=== PATIENT | male | born 1965 | race Caucasian/White ===

== ENCOUNTER 2017-04-28 10:48 | Day surgery (SDC) | payer OTHER ==
[~2017-04-28 10:48] MED LIST: BUPIVACAINE 0.5% 30 ML SDV ONE; DEXAMETHASONE 4 MG/ML VIAL ONE; LIDOCAINE 1% 300 MG/30 ML SDV ONE; ROPIVACAINE HCL 20 MG/10 ML INJ EP ONE; ceFAZolin 2 GM/SWFI 2 GM/20 ML SYR IVP ONE
[2017-04-28] MEDS ORDERED: BACITRACIN 50,000 UNITS/10 ML SYR IRR ONE (10:49)
[2017-04-28] MEDS ORDERED: ROPIVACAINE HCL 150 MG/30 ML INJ ONE (10:51)
[2017-04-28] MEDS ORDERED: LIDOCAINE 1% 2 ML INJ ID PRN (11:19)
[2017-04-28] MEDS ORDERED: LR 1,000 ML IV ONE (11:19)
--- NOTE | 2017-04-28 11:22 | PDANEPAE ---
ANE History of Present Illness 51 year old male presents for left bunionectomy. ANE Past Medical History - Cardiovascular History Hx Hypertension: No Hx Arrhythmias: No Hx Chest Pain: No Hx Coronary Artery / Peripheral Vascular Disease: No Hx CHF / Valvular Disease: No Hx Palpitations: No - Pulmonary History Hx COPD: No Hx Asthma/Reactive Airway Disease: No Hx Recent Upper Respiratory Infection: No Hx Oxygen in Use at Home: No Hx Sleep Apnea: Yes Sleep Apnea Screening Result - Last Documented: Positive Pulmonary History Comment: TYRA- uses "sleep number bed and decreases snoring". occ cigar smoking - Neurologic History Hx Cerebrovascular Accident: No Hx Seizures: No Hx Dementia: No - Endocrine History Hx Diabetes: No Hypothyroid: No Hyperthyroid: No Obesity: no - Renal History Hx Renal Disorders: No - Liver History Hx Hepatic Disorders: No - Neurological & Psychiatric Hx Hx Neurological and Psychiatric Disorders: Yes Neurological / Psychiatric History Comment: degenerative disc low back - Cancer History Hx Cancer: No - Congenital Disorder History Hx Congenital Disorders: No - GI History Hx Gastrointestinal Disorders: No - Other Health History Other Health History: L foot bunion - Chronic Pain History Chronic Pain: Yes - Surgical History Prior Surgeries: cervical fusion. biceps tendon surgery. bilat knee scopes '13 ,'14. repair labrum in shoulder'03 ANE Review of Systems Review of Systems: - Exercise capacity Exercise capacity: >=4 METS METS (RN): 5 METS ANE Patient History - Allergies Allergies/Adverse Reactions: gluten Allergy (Intermediate, Verified 05/22/12 14:45) INTOLERANCE wheat Allergy (Intermediate, Verified 05/22/12 14:45) POOR DIGESTION DAIRY Allergy (Intermediate, Uncoded 05/22/12 14:45) POOR DIGESTION - Home Medications Home medications: home medication list seen and reviewed Home Medications: NO HOME MEDS 06/12/09 [Last Taken Unknown] - NPO status NPO Status: no food or drink >8 hours - Anes Hx Anes Hx: no prior problems - Smoking Hx Smoking Status: Never smoked Marijuana use: No - Alcohol Use Alcohol Use: Rarely - Family Anes Hx Family Anes Hx: neg - N/A ANE Labs/Vital Signs - Vital Signs Vital Signs: reviewed preoperatively; see RN documention for details Height: 180.34 cm Weight: 81.647 kg ANE Physical Exam - Airway Neck exam: FROM Mallampati Score: Class 1 Mouth image: 1 - Veneers - Pulmonary Pulmonary: no respiratory distress - Cardiovascular Cardiovascular: regular rate and rhythym - ASA Status ASA Status: II ANE Anesthesia Plan Anesthesia Plan: MAC Total IV Anesthesia: Yes
[2017-04-28] MEDS ORDERED: MIDAZOLAM 2 MG/2 ML VIAL IVP ONE (11:23)
[2017-04-28] MEDS ORDERED: PROPOFOL/EMULSION 500 MG/50 ML BOTTLE IV ONE ×3 (11:58→13:30)
[2017-04-28] MEDS ORDERED: ceFAZolin 2 GM/SWFI 20 ML SYR IVP ONE (12:02)
--- NOTE | 2017-04-28 12:13 | PDHPUP ---
History & Physical Update H&P update statement: This history and physical update is based on an assessment of the patient which was completed after admission or registration (within 24 hours), but prior to the surgery/procedure.
[2017-04-28] MEDS ORDERED: OXYCODONE/APAP 5/325 TAB PO PRN ×2 (13:03→15:07)
[2017-04-28] MEDS ORDERED: LR 500 ML IV PRN (13:03)
[2017-04-28] MEDS ORDERED: fentaNYL 100 MCG/2 ML INJ IVP PRN (13:03)
[2017-04-28] MEDS ORDERED: NALOXONE HCL 0.4 MG/ML INJ IVP PRN (13:03)
[2017-04-28] MEDS ORDERED: ONDANSETRON 4 MG/2 ML VIAL IVP PRN ×2 (13:03→15:07)
[2017-04-28] MEDS ORDERED: ONDANSETRON 4 MG/2 ML VIAL ONE (14:11)
[2017-04-28] MEDS ORDERED: KETOROLAC 30 MG/1 ML SDV IVP ONE (15:06)
[2017-04-28] MEDS ORDERED: ONDANSETRON DISINTEGRATING 4 MG TAB PO PRN (15:07)
[2017-04-28] MEDS ORDERED: KETOROLAC 30 MG/1 ML SDV ONE (15:11)
--- NOTE | 2017-04-28 15:16 | POSTOPPROG ---
Post Op Note Date of Operation: 04/28/17 Surgeon: Rohini Leavitt [employer] Forester: Adilia Leavitt Pre-op Diagnosis: hallux vaglus, metatarsus primus varus, left Post-op Diagnosis: same Indication: pain Procedure: bunionectomy with double osteotomy, left Findings: some osteopenia Inf/Abcess present in the surg proc area at time of surgery?: No Complications: none
[2017-04-28 17:02] VITALS: BP 124/89; PULSE 54; RESP 15; TEMP 97.7; O2SAT 97
--- NOTE | 2017-04-28 19:44 | GOP ---
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 PROCEDURE PERFORMED: Bunionectomy with double osteotomy, osteotomy distal 1st metatarsal, and osteot lucia proximal phalanx, hallux, left foot. The patient presented to the hospital approximately 1-1/2 hours prior to foot surgery after having be en n.p.o. past midnight. The patient's preoperative history and physical, all lab studies and EKG we re reviewed and there were no contraindications to the proposed procedure. Patient was given cefazol in 2 g IV 1/2-hour prior to foot surgery. FINDINGS: DESCRIPTION OF PROCEDURE: The patient was taken to the OR and placed on the OR table in a supine pos ition where the appropriate anesthetic agents were administered. This was supplemented with a local block to the left foot utilizing a total of 10 cc of 1% lidocaine with 10 cc of 0.2% Naropin. The an esthetic block was given to the left forefoot to the base of the 1st metatarsal and to the posterior tibial nerve as it courses through the tarsal tunnel. The left lower extremity was then prepped and draped in the usual aseptic fashion covered with a sterile stockinette. A sterile pneumatic ankle to urniquet was applied and padded well underneath with Webril. Utilizing elevation overlying Esmarch b andage, the left foot was exsanguinated and the tourniquet was inflated to a pressure of 225 mmHg. T he foot was then lowered to the orthopedic table. Attention was then directed to the dorsal medial aspect of the 1st metatarsophalangeal joint, left fo ot, where an approximate 5 cm curvilinear incision was made initiated just distal to the 1st metatars ophalangeal joint, then extended proximally. The incision was made medial to the extensor hallucis l ongus tendon. The incision was deepened to the level of the capsular tissues taking care to preserve the neurovascular structures. Any bleeders were clamped and cauterized as needed. The subcutaneous tissues were reflected from the dorsal medial aspects of the capsular tissues to the 1st metatarsoph alangeal joint. A linear capsular incision was made and the capsular tissues were reflected off the dorsal medial and medial aspects of the head of the 1st metatarsal and distal shaft region. The hype rtrophic bone to the medial aspect of the head of the 1st metatarsal was then resected utilizing sagi ttal saw and placed on the back table. A 0.045 K-wire was then advanced in a ihpikm-ik-sgeeuhg direc tion through the center aspect of the head of the 1st metatarsal to serve as an axis guide. Two oste otomies were then created to the distal 1st metatarsal utilizing the sagittal saw. The 1st osteotomy was initiated at the K-wire and extended plantarly and proximally. The 2nd osteotomy was initiated at the K-wire and extended dorsally and proximally. The 2nd osteotomy was approximately 3 times the length of the 1st osteotomy. The K-wire was removed and the 1st metatarsal head was shifted laterall y approximately 7 mm completely flush against the distal shaft of the metatarsal. The osteotomy site was stabilized with 2 K-wires advanced in a dorsal distal to plantar proximal direction. Two guidew ires to the Arthrex headless screw system were then advanced in a dorsal distal to plantar proximal d irection crossing the osteotomy site. Alignment was checked with the C-arm and optimal. Utilizing s tandard technique with the Arthrex screw system, two 2.5 headless Arthrex screws, 1 measuring 16 mm i n length and the other 14 mm in length, were placed across the guidewires. First the proximal screw was placed which measured 14 mm in length. Then the 2nd Arthrex screw was placed across the guidewir e which measured 16 mm in length. The guidewires were removed and the temporary K-wires, and the ost eotomy site was well aligned and stable. The medial shelf of bone was resected utilizing the sagitta l saw and placed on the back table. Any prominent bony borders were remodeled to a smooth surface ut ilizing the powered rasp. Surgical site was copiously irrigated with sterile saline bacitracin solut ion. The medullary bone was quite soft. Thus, the cancellous bone was retrieved from the medial she lf of bone that was resected and packed into the medullary canal. The surgical site was again copiou sly irrigated with sterile saline bacitracin solution. Alignment of the 1st metatarsal and hallux wa s checked with a C-arm and there was still residual mild hallux valgus. At this time, it was felt th at an additional Michael osteotomy would be beneficial to achieve a more rectus or a position of the hallux. Thus the skin incision was lengthened approximately another 1.5 to 2 cm and the inci osman was deepened to the level of the periosteal tissues taking care to preserve the neurovascular st ructures. Depressed tissues reflected off the midshaft region of the proximal phalanx and a K-wire w as advanced in a [id number]-nm-ephhieh direction just medial to the lateral cortical wall and at the base of the proximal phalanx. Utilizing the Josh guide, 2 osteotomies were created to the proximal phal anx excising a medial wedge of bone. The 1st osteotomy to initiate the K-wire and extended distally and medially. The 2nd osteotomy performed in a similar fashion but in a less oblique direction so as to excise a 3 mm medial wedge of bone. The wedge of bone was excised and placed on the back table. The K-wire was removed and the osteotomy site was gently feathered so as to leave the lateral cortic al hinge intact but reduce the osteotomy. Surgical site was copiously irrigated with sterile saline bacitracin solution. The guidewire to the headless Arthrex screw was then placed across the osteotom y site with the hallux reduced in a medial proximal to distal lateral direction. Utilizing standard technique with the Arthrex screw system, an 18 mm 2.5 Arthrex screw was placed acr oss the guidewire. There was mild gapping only at the medial end of the osteotomy site and bone was packed into this area that was saved. The osteotomy site was stable and the hallux was in a rectus o r position. Attention was then redirected to the medial capsular tissues where a capsular repair was performed. A medial wedge of tissue was excised from the medial aspect head of the 1st metatarsal. The capsular tissues were reapproximated utilizing 2-0 Vicryl and 3-0 Vicryl. It should be mentioned, that the e xtensor digitorum brevis tendon was isolated and released. Also, attention was directed to the 1st w eb space prior to performance of the osteotomy which was inspected to perform an adductor tendon chan sfer. The adductor tendon was identified and freed distally; however, decision was made not to trans maegan the adductor tendon due to its size which was very small and thin. The tourniquet was released. There was immediate capillary refill to all digits and hemostasis. The subcutaneous tissues were re approximated with 4-0 Monocryl utilizing interrupted simple sutures. The skin was reapproximated uti lizing 4-0 Prolene with interrupted horizontal mattress sutures. An additional 10 cc of 0.5% Marcain e plain was injected proximal to the surgical site. A mildly compressive dry sterile gauze dressing was applied with Xeroform, 4 x 4 gauze, Jeffery, Kerlix, and Jersey wraps. The patient tolerated the procedure and anesthesia well and transferred to the recovery room with vit al signs stable and vascular status intact to the left lower extremity. In the recovery room, the pa tient received postoperative oral and written home care instructions. The patient had already been d ispensed a cast boot to wear when ambulating. He was instructed to use crutches for ambulation rob t for the first 3 days. Orders were written for patient to receive Toradol 30 mg IV prior to dischar ge. The patient was also dispensed a Cryo/Cuff and instructed on its usage after surgery. Prescript ions have been given for oxycodone extended release and immediate release to take postoperatively as prescribed for pain. The procedure went well without complications. The patient is scheduled to fol low up in the office in 3 days but is to call the office earlier if any questions or problems should arise. /[id number]/MODL
== END 2017-04-28 16:43 | disposition home or self-care (01) ==
LOC: FSGY 10:48
PROVIDERS: ATTEND Podiatrist
DX: M20.12 Hallux valgus (acquired), left foot (principal); F17.210 Nicotine dependence, cigarettes, uncomplicated
CPT/HCPCS: C1713; J0690; J1100; J1885; J2250; J2405; J2704; J2795

== ENCOUNTER → 2018-03-23 | Outpatient (CLI) | payer OTHER | LOC: FIMAGING 18:29 | PROVIDERS: ATTEND Physician Assistant | DX: M43.12 Spondylolisthesis, cervical region (principal); M48.02 Spinal stenosis, cervical region ==

== ENCOUNTER → 2018-05-21 | Outpatient (CLI) | payer OTHER | LOC: FIMAGING 08:22 | PROVIDERS: ATTEND Physician Assistant | DX: Z09 Encounter for follow-up examination after completed treatment for conditions other than malignant neoplasm (principal); Z98.1 Arthrodesis status; M47.812 Spondylosis without myelopathy or radiculopathy, cervical region ==

== ENCOUNTER → 2018-07-02 | Outpatient (CLI) | payer OTHER | LOC: FIMAGING 17:48 → EDSTATUS 17:49 | PROVIDERS: ATTEND Neurological Surgery | DX: Z09 Encounter for follow-up examination after completed treatment for conditions other than malignant neoplasm (principal); Z98.1 Arthrodesis status; M50.11 Cervical disc disorder with radiculopathy, high cervical region ==